=== PATIENT | female | born 1980 | race Two or more races ===

== ENCOUNTER 2024-12-06 21:02 | Emergency (ER) | payer MEDICAID, SELFPAY ==
[2024-12-06 21:02] VITALS: BMI 31.8
[2024-12-06 21:48] VITALS: BP 149/101; PULSE 84; RESP 20; TEMP 36.8; O2SAT 99
--- NOTE | 2024-12-06 22:05 | EKG_ITS ---
[facility] Test Date: 2024-12-06 Pat Name: IZABEL VELASQUEZ Department: Room: - Gender: Female Mfts: : 1980 Requested By: Blake Howard ([facility]) Order Number: [id number] Reading MD: Blake Howard ([facility]) Measurements Intervals [place] Rate: 84 P: 54 [place]: 133 QRS: -7 QRSD: 104 T: 10 QT: 360 QTc: 427 Interpretive Statements SINUS RHYTHM No previous ECG available for comparison /store/S0/[id number]/ecg/[id number].pdf
--- NOTE | 2024-12-06 22:05 | XR_ITS ---
Examination: PA lateral chest 2 views Technique: Upright PA lateral chest 2 views Exam date and time: December 06, 2024 at 10:11 PM Indications: Onset chest pain beginning one week ago. Findings: Normal heart size. Lungs are clear. The osseous structures are intact Impression: No active disease
--- NOTE | 2024-12-06 22:05 | XR_ITS ---
Examination: CT brain head without contrast. 2-D sagittal coronal reconstructions Date and time of exam:December 06, 2024 1032 hrs. Indications: Headache dizziness nausea right hand pain beginning today CTDI: vol (mGy):49.5 DLP: (mGycm):957 Technique: Multiple CT axial sections of the brain have been obtained, 5 mm slice thickness. Contrast has not been administered. 2-D sagittal, coronal reconstructions have been obtained Low dose protocols were performed. One or more of the following dose reduction techniques were used; automated exposure control, adjustment of the mA and/or KV according to patient size, use of iterative reconstruction technique. Findings: No significant ventricular enlargement. Intra-axial or extra-axial hemorrhage density is not seen. No mass effect or midline shift Basal cisterns are not remarkable. Fourth ventricle is midline. Cranial vault intact. Acute pansinusitis Impression: Negative for acute hemorrhage, mass effect or midline shift If symptoms persist, consider brain MRI follow-up
--- NOTE | 2024-12-06 22:07 | PD.EDRME ---
Rapid Medical Screening Exam RME Arrival date/time: 12/06/24 21:02 44-year-old female presents emergency department complaining of headache, dizziness, and nausea since yesterday. Chief Complaint: General Adult/Misc Complain Time Seen by Provider: 12/06/24 21:54 Vital signs: Vital Signs Temperature 98.3 F 12/06/24 21:48 Pulse Rate 84 12/06/24 21:48 Respiratory Rate 20 12/06/24 21:48 Blood Pressure 149/101 H 12/06/24 21:48 Pulse Oximetry (%) 99 12/06/24 21:48 Oxygen Delivery Method Room Air 12/06/24 21:48 Vital signs reviewed by provider: Yes
[2024-12-06] MEDS: METOCLOPRAMIDE 5 MG TABLET 10 MG PO (22:29)
[2024-12-06] MEDS: ACETAMINOPHEN 500 MG TABLET 1000 MG PO (22:29)
[2024-12-06 22:53] LABS: Basophils % (Auto) 1 % (0-2.5); Eosinophils % (Auto) 1 % (0-10); Hematocrit 44.3 % (36.0-46.0); Hemoglobin 15.3 g/dL (12.0-16.0); Immature Granulocytes % (Auto) 0 % (0-0); Immature Granulocytes Auto 0.01 Thou/mm3 (0.00-0.00); Lymphocytes # (Auto) 3.3 Thou/mm3 (1.0-4.8); Lymphocytes % (Auto) 42 % (10-50); Mean Corpuscular HGB Conc 34.5 g/dl (31.0-37.0); Mean Corpuscular Hemoglobin 28.5 pg (25.0-35.0); Mean Corpuscular Volume 83 fL (80-100); Monocytes # (Auto) 0.5 Thou/mm3 (0.0-0.8); Monocytes % (Auto) 6 % (0-12); Neutrophils # (Auto) 3.9 Thou/mm3 (1.8-7.7); Neutrophils % (Auto) 50 % (37-80); Nucleated Red Blood Cell % 0 /100 WBC (0); Platelet Count 300 Thou/mm3 (140-440); RDW Standard Deviation 39.8 fL (36.4-46.3); Red Blood Count 5.37 Miln/mm3 (4.00-5.20); White Blood Count 7.7 Thou/mm3 (3.6-11.0)
[2024-12-06 22:57] LABS: Alanine Aminotransferase 32 U/L (10-49); Albumin, Serum 4.9 gm/dL (3.5-5.0); Albumin/Globulin Ratio 1.4 (1.2-2.2); Alkaline Phosphatase 97 U/L (46-116); Anion Gap 8 (7-16); Aspartate Amino Transferase 30 U/L (0-34); BUN/Creatinine Ratio 10 Ratio (12-20); Bilirubin,Total 0.4 mg/dL (0.3-1.2); Blood Urea Nitrogen 8 mg/dL (9-23); Calcium 10.3 mg/dL (8.3-10.6); Calcium (Corrected) 10.3 mg/dL (8.5-10.1); Carbon Dioxide 28.5 mMol/L (20.0-31.0); Chloride 107 mMol/L (98-107); Creatinine (Component) 0.8 mg/dL (0.6-1.3); Estimated Creatinine Clearance 90.8 mL/min (>60); Globulin 3.5 gm/dL (2.3-3.5); Glucose 102 mg/dL (74-106); Osmolality,Calculated 283 (275-295); Potassium 3.9 mMol/L (3.4-5.1); Sodium 143 mMol/L (136-145); Total Protein 8.4 gm/dL (5.7-8.2); Troponin I < 0.002 ng/mL (0.0-0.045); eGFR > 60 See Note
[2024-12-06 22:58] LABS: HCG,Qualitative Serum Negative
[2024-12-06 23:18] LABS: Amphetamine/Methamp Scrn,U Negative (Negative); Barbiturate Screen,Urine Negative (Negative); Benzodiazepines Screen,Urine Negative (Negative); Benzoylecgonine Screen, Ur Negative (Negative); Fentanyl Screen,Urine Negative (Negative); Opiate Screen,Urine Negative (Negative); THC Screen,Urine Negative (Negative)
[2024-12-07 00:33] VITALS: BP 159/91; PULSE 87; RESP 20; TEMP 36.8; O2SAT 99
--- NOTE | 2024-12-07 00:40 | EDNOTE_ITS ---
ED Headache RME/HPI General Chief Complaint: General Adult/Misc Complain Stated Complaint: H/A, DIZZY, NAUSEA AND RIGHT HAND PAIN Time Seen by Provider: 12/06/24 21:54 Source: patient Arrival date/time: 12/06/24 21:02 44-year-old female presents emergency department complaining of headache, dizziness, nausea, and right hand pain since yesterday. Patient denies any fever, chills, vision changes, vomiting, or any other associated symptom. Mode of arrival: ambulatory Limitations: no limitations RME / HPI RME / HPI Narrative: 12/06/24 21:02 44-year-old female presents emergency department complaining of headache, dizziness, and nausea since yesterday. Related Data Previous Rx's ?Medication ?Instructions ?Recorded albuterol sulfate 90 mcg/actuation 2 puff inhalation Q ID #18 grams 05/03/20 aerosol inhaler cetirizine 10 mg tablet (Zyrtec) 10 mg PO QDAY #30 tab s 05/03/20 sodium chloride 0.65 % nasal spray 2 spray intranasal QID PRN nasal 05/03/20 aerosol (Saline Nasal) congestion #60 mL ibuprofen 800 mg tablet 800 mg PO TID PRN pain #30 t abs 02/05/23 amoxicillin 875 mg-potassium 1 tab PO BID 7 days #14 t abs 12/07/24 clavulanate 125 mg tablet ibuprofen 600 mg tablet 600 mg PO Q8H PRN pain #20 t abs 12/07/24 Allergies Allergy/AdvReac Type Severity Reaction Status Date / Time No Known Allergies Allergy Verified 02/05/23 08:37 Review of Systems Review of Systems Systems Reviewed: All systems reviewed, normal except as documented Constitutional Constitutional: Reports system reviewed and no additional complaints, except as documented, Denies body ache(s), Denies chills, Denies fever(s) and Reports headache(s) Eyes Eyes: Reports system reviewed and no additional complaints, except as documented and Denies change in vision ENT Ears, Nose, Mouth, and Throat: Reports system reviewed and no additional complaints, except as documented, Denies disequilibrium, Reports dizziness, Reports headache(s), Denies sore throat and Denies vertigo Cardiovascular Cardiovascular: Reports system reviewed and no additional complaints, except as documented, Denies chest pain and Denies dyspnea Respiratory Respiratory: Reports system reviewed and no additional complaints, except as documented, Denies chest congestion, Denies cough and Denies dyspnea Gastrointestinal Gastrointestinal: Reports system reviewed and no additional complaints, except as documented, Denies abdominal pain, Reports nausea and Denies vomiting Musculoskeletal Musculoskeletal: Reports system reviewed and no additional complaints, except as documented, Denies abnormal gait, Denies arthralgias and Reports radiating pain into limb Integumentary/Breasts Skin/Breast: Reports system reviewed and no additional complaints, except as documented, Denies erythema, Denies rash and Denies wounds Neurologic Neurologic: Reports system reviewed and no additional complaints, except as documented, Denies abnormal gait, Denies disequilibrium, Reports dizziness, Reports headache(s) and Denies vertigo Past Medical History Past Medical History CARDIAC: Negative Congestive Heart Failure RESPIRATORY: Negative Chronic Obstructive Pulmonary Disease (COPD) GENITOURINARY: Negative Renal Disease ENDOCRINE: Negative Diabetes Mellitus Type 1 or Diabetes Mellitus Type 2 Social History SMOKING STATUS: Never smoker ED Exam General Limitations: Present no limitations General appearance: Present alert and in no apparent distress Head Head exam: Present atraumatic Eye Eye exam: Present normal appearance, PERRL and EOMI ENT ENT exam: Present normal exam, normal oropharynx and mucous membranes moist Neck Neck exam: Present normal inspection, full ROM and trachea midline Chest Chest inspection: Present normal inspection and symmetric chest wall rise Respiratory Respiratory exam: Present normal lung sounds bilaterally Cardiovascular Cardiovascular exam: Present regular rate, normal rhythm and normal heart sounds Abdominal Exam Abdominal exam: Present soft and normal bowel sounds Extremities Exam Extremities exam: Present normal inspection and full ROM Back Exam Back exam: Present normal inspection and full ROM Neurological Exam Neurological exam: Present alert, oriented X3 and CN II-XII intact Psychiatric Psychiatric exam: Present normal affect and normal mood Skin Skin exam: Present warm, dry, intact and normal color Course Quality Measures none Orders Category Date Time Status Bedside Influenza A&B Antigen Test NOW Care 12/06/24 22:06 Completed EKG (ED ONLY) *Do not use* NOW Care 12/06/24 22:[address] head/brain wo con Stat Exams 12/06/24 22:05 Completed EKG (ED Only) Stat Exams 12/06/24 22:05 Draft XR chest 2V Stat Exams 12/06/24 22:05 Completed CBC Stat Lab 12/06/24 22:21 Completed Comprehensive Metabolic Panel Stat Lab 12/06/24 22:21 Completed Drug Screen,Urine Stat Lab 12/06/24 22:50 Completed HCG,Qualitative Serum Stat Lab 12/06/24 22:21 Completed Troponin I Stat Lab 12/06/24 22:21 Completed Acetaminophen Tab [Tylenol ES Tab] Med 12/06/24 22:05 Discontinued 1,000 mg PO X1 ONE Ketorolac Inj [Toradol Inj] Med 12/07/24 00:41 Discontinued 30 mg IM X1 ONE Metoclopramide [Reglan] Med 12/06/24 22:05 Discontinued 10 mg PO X1 ONE Vital Signs Vital signs: Vital Signs Temperature 98.3 F 12/06/24 21:48 Pulse Rate 84 12/06/24 21:48 Respiratory Rate 20 12/06/24 21:48 Blood Pressure 149/101 H 12/06/24 21:48 Pulse Oximetry (%) 99 12/06/24 21:48 Oxygen Delivery Method Room Air 12/06/24 21:48 99% room air within normal limits Procedures -ED EKG Interpretation #1: Date of EK12/06/24 Time of EK:21 Rate: 84 Interpretation: Interpreted by me EKG Impression: Normal sinus rhythm, No acute ST-T changes, No ectopy, No ischemic changes and Normal QRS Headache MDM Narrative MDM Narrative:: 44-year-old female presents emergency department complaining of headache, dizziness, nausea, and right hand pain since yesterday. Patient denies any fever, chills, vision changes, vomiting, or any other associated symptom. CBC was unremarkable for any leukocytosis or anemia. CMP was unremarkable for any gross electrolyte abnormalities or elevated LFTs. EKG sinus rhythm with normal troponin. Chest x-ray was unremarkable for any pneumonic infiltrates. CT head unremarkable other than acute pansinusitis which may be causing patient's headache and dizziness. Patient reports significant improvement in symptoms after given nausea and pain medication. Patient's right hand full active range of motion with no obvious deformity, erythema, or abnormalities. Instructed patient to follow-up with primary care provider regarding right hand pain and patient discharged on oral antibiotics for acute sinusitis and pain medication. Patient stable for discharge. Patient data External records reviewed:: [facility] previous records Clinical information provided by:: patient Social determinants that could affect healthcare access:: none Patient has the following chronic illnesses:: None How is presenting disease/condition affected by chronic disease/condition?: no chronic disease Evaluation data The following diagnostics were reviewed and interpreted by me:: lab results, radiology exam(s) and EKG tracing(s) Lab and/or radiology exams considered but not ordered:: Ordered Interpretation Summary: Interpreted by me Medications / Prescriptions Medications or Prescriptions considered but not ordered:: Ordered Medication administrations:: Medication Administration History Discontinued Medications Acetaminophen (Acetaminophen 500 Mg Tablet) 1,000 mg PO X1 ONE Stop: 12/06/24 22:06 Last Admin: 12/06/24 22:29 Dose: 1,000 mg Documented By: JACLYN Ketorolac Tromethamine (Ketorolac Inj 60 Mg/2 Ml Vial) 30 mg IM X1 ONE Stop: 12/07/24 00:42 Last Admin: 12/07/24 00:57 Dose: 30 mg Documented By: CASSIDY Metoclopramide HCl (Metoclopramide 5 Mg Tablet) 10 mg PO X1 ONE Stop: 12/06/24 22:06 Last Admin: 12/06/24 22:29 Dose: 10 mg Documented By: JACLYN Given Consultations Consultation(s) initiated? (list below): No Diagnosis Differential diagnosis headache: migraine, tension headache, subarachnoid hemorrhage, headache, meningitis, sinusitis and postconcussion syndrome Most likely diagnosis given after review of the tests above:: Sinusitis Admission Indicated Admission indicated?: not indicated Admission Request Was there a request for admission?: No Disposition Plan Disposition Plan: Discharge Discharge Attestation Discharge Attestation: The patient and all family members were given an opportunity to ask questions and understood the discharge instructions. Discharge instructions specifically effects, indications for sooner follow up or return to the emergency department, and the expected course of current diagnosis. Patient condition: Stable Discharge Plan Plan Patient Disposition: HOME (Self Care) Disposition Comment: Stable Prescriptions/Referrals Prescriptions/Med Rec: New ibuprofen 600 mg tablet 600 mg PO Q8H PRN (Reason: pain) Qty: 20 0RF amoxicillin-pot clavulanate 875-125 mg tablet 1 tab PO BID 7 Days Qty: 14 0RF No Action albuterol sulfate 90 mcg/actuation HFA aerosol inhaler 2 puff IH QID Qty: 18 0RF cetirizine [Zyrtec] 10 mg tablet 10 mg PO QDAY Qty: 30 0RF sodium chloride [Saline Nasal] 0.65 % aerosol,spray 2 spray INTRANASAL QID PRN (Reason: nasal congestion) Qty: 60 0RF ibuprofen 800 mg tablet 800 mg PO TID PRN (Reason: pain) Qty: 30 0RF Problem List Clinical Impression: Sinusitis Patient/Caregiver Discharge Instructions Discharge Activity: activity as tolerated Education Materials: Understanding Your Sinuses, Self-Care for Sinusitis, ED Sinusitis (Antibiotic Treatment) Additional Instructions: Drink plenty of fluids and get plenty of rest. Take Tylenol or ibuprofen as needed for pain. Follow-up with primary care provider in 2 to 3 days. Return to emergency department for any worsening symptoms or as needed. Print Language: Indonesian Stand Alone Forms: Tonya Award Info., Patient Portal Info Letter PA/[employer] Supervising Physician PA/[employer] Supervising Physician: Dr. Dukes
[2024-12-07] MEDS: KETOROLAC INJ 60 MG/2 ML VIAL 30 MG IM (00:57)
== END 2024-12-07 01:27 | disposition home or self-care (01) ==
LOC: SERX 12-07 02:00
PROVIDERS: Emergency Provider Emergency Medicine; PCP Family Medicine
DX: J01.40 Acute pansinusitis, unspecified (principal); M79.641 Pain in right hand
CPT/HCPCS: 36415; 70450; 71046; 80053; 80307; 84484; 84703; 85025; 87400; 93005; 96372; 99284; J1885; A9270